=== PATIENT | male | born 1975 | race Caucasian/White ===

== ENCOUNTER 2017-05-26 04:15 | Inpatient (IN) | payer MEDICAID, OTHER ==
[2017-05-26] MEDS: SODIUM CHLORIDE 0.9% 1L BAG IV* (08:46)
[2017-05-26] MEDS: morphine 4 MG/ML VIAL IV (08:47)
[2017-05-26] MEDS: PIPER-TAZO 3.375 GM IV (PMX) 50 ML IVPB (08:47)
[2017-05-26] MEDS: ONDANSETRON 4 MG INJ IV (08:47)
[2017-05-26 08:48] LABS: ADD MAN DIFF? NO
[2017-05-26 08:50] LABS: BASOPHIL # 0.1 10^3/ul (0.0-0.1); BASOPHILS % 0.4 % (0.0-2.0); HEMATOCRIT 42.2 % (42.0-52.0); HEMOGLOBIN 15.3 g/dl (14.0-18.0); LYMPHOCYTES # 0.9 10^3/ul (0.8-2.9); LYMPHOCYTES % 7.4 % (15.0-51.0); MEAN CORPUSCULAR HEMOGLOBIN 31.2 pg (29.0-33.0); MEAN CORPUSCULAR HGB CONC 36.3 g/dl (32.0-37.0); MEAN CORPUSCULAR VOLUME 86.1 fl (82.0-101.0); MEAN PLATELET VOLUME 10.7 fl (7.4-10.4); MONOCYTE # 1.2 10^3/ul (0.3-0.9); MONOCYTES % 9.8 % (0.0-11.0); NEUTROPHIL # 9.9 10^3/ul (1.6-7.5); NEUTROPHILS % 82.1 % (39.0-77.0); PLATELET COUNT 129 10^3/UL (140-415); POSITIVE DIFF @See below; RED CELL DISTRIBUTION WIDTH 13.4 % (11.5-14.5)
[2017-05-26] MEDS: ACETAMINOPHEN 325 MG TAB PO (08:58)
[2017-05-26 09:18] LABS: INR 1.01; PROTIME 13.4 Sec (11.9-14.9)
[2017-05-26 09:19] LABS: PARTIAL THROMBOPLASTIN TIME 26.9 Sec (25.0-35.0)
[2017-05-26 09:21] LABS: LACTIC ACID 1.5 mmol/L (0.5-2.0)
[2017-05-26 09:22] LABS: ALANINE AMINOTRANSFERASE 108 IU/L (13-69); ALBUMIN 5.5 g/dl (3.3-4.9); ALBUMIN/GLOBULIN RATIO 1.48; ALKALINE PHOSPHATASE 108 IU/L (42-121); ANION GAP 23 (8-16); ASPARTATE AMINO TRANSFERASE 149 IU/L (15-46); BLOOD UREA NITROGEN 9 mg/dl (7-20); CALCIUM 10.1 mg/dl (8.4-10.2); CARBON DIOXIDE 23 mmol/L (21-31); CHLORIDE 93 mmol/L (97-110); CREATININE 0.65 mg/dl (0.61-1.24); GLUCOSE 128 mg/dl (70-220); POTASSIUM 3.5 mmol/L (3.5-5.1); SODIUM 135 mmol/L (135-144); TOTAL PROTEIN 9.2 g/dl (6.1-8.1)
[2017-05-26 09:33] LABS: TROPONIN-I 0.014 ng/ml (0.00-0.12)
[2017-05-26 11:14] LABS: LACTIC ACID 1.1 mmol/L (0.5-2.0)
[2017-05-26 11:50] LABS: ADD UMIC YES; UR ASCORBIC ACID NEGATIVE (NEGATIVE); UR BILIRUBIN (Dip) NEGATIVE (NEGATIVE); UR BLOOD (Dip) NEGATIVE (NEGATIVE); UR CLARITY CLEAR (CLEAR); UR COLOR YELLOW (YELLOW); UR GLUCOSE (Dip) 1+ mg/dL (NEGATIVE); UR KETONES (Dip) 1+ mg/dL (NEGATIVE); UR LEUKOCYTE ESTERASE (Dip) NEGATIVE Leu/ul (NEGATIVE); UR MUCUS FEW /HPF (NONE SEEN); UR NITRITE (Dip) NEGATIVE (NEGATIVE); UR RBC 1 /HPF (0-5); UR SPECIFIC GRAVITY (Dip) 1.009 (1.003-1.030); UR TOTAL PROTEIN (Dip) 2+ mg/dl (NEGATIVE); UR UROBILINOGEN (Dip) NEGATIVE (NEGATIVE); UR WBC 0 /HPF (0-5)
[2017-05-26] MEDS ORDERED: ACETAMINOPHEN 325 MG TAB PO ×2 (12:30→15:00)
[2017-05-26] MEDS ORDERED: ONDANSETRON 4 MG INJ IV ×2 (12:30→15:00)
[2017-05-26 14:05] LABS: LACTIC ACID 1.2 mmol/L (0.5-2.0)
[2017-05-26] MEDS ORDERED: HYDROCODONE/APAP (5/325) TAB PO (15:00)
[2017-05-26] MEDS: hydrALAzine 20 MG INJ IV (20:17)
[2017-05-26] MEDS: SOD CHLORIDE 0.9% 1,000 ML IV ×2 (20:17→23:00)
[2017-05-26] MEDS: DOCUSATE SODIUM 100 MG CAP PO (21:00)
[2017-05-27] MEDS: SOD CHLORIDE 0.9% 1,000 ML IV (06:14)
[2017-05-27 08:38] LABS: AMPHETAMINE/METHAMPHETAMINE Negative (NEGATIVE); BARBITURATES Negative (NEGATIVE); BENZODIAZEPINES Negative (NEGATIVE); CANNABINOIDS Negative (NEGATIVE); COCAINE Negative (NEGATIVE)
[2017-05-27 08:41] LABS: OPIATES Positive (NEGATIVE)
[2017-05-27] MEDS ORDERED: INFLUENZA VIRUS VACCINE 0.5 ML (DISPENSING) IM* (09:00)
== END 2017-05-27 07:30 | disposition left against medical advice (07) | DRG 312 ==
LOC: E/R 04:15 → MS4 12:20
PROVIDERS: Internal Medicine
DX: R55 Syncope and collapse (principal); R65.10 Systemic inflammatory response syndrome (SIRS) of non-infectious origin without acute organ dysfunction; R74.0 Nonspecific elevation of levels of transaminase and lactic acid dehydrogenase [LDH]; E86.0 Dehydration; R10.9 Unspecified abdominal pain; R11.2 Nausea with vomiting, unspecified; R03.0 Elevated blood-pressure reading, without diagnosis of hypertension
CPT/HCPCS: 36415; 70450; 71010; 76705; 80053; 80307; 81001; 83605; 84484; 85025; 85610; 85730; 87040; 87086; 87400; 90686; 93005; 96374; 96375; 99291-25